=== PATIENT | female | born 1990 | race Caucasian/White ===

== ENCOUNTER 2017-08-05 18:02 | Inpatient (IN) | payer BC ==
[2017-08-05 18:47] VITALS: BMI 26.1
[2017-08-05] MEDS: Lactated Ringer's 1,000 ML IV SCH (21:07)
[2017-08-05] MEDS ORDERED: Lidocaine 1% (PF) 30 ML VIAL SC PRN (21:10)
[2017-08-05] MEDS ORDERED: HYDROcodone/Acetaminophen 5/325 mg Tablet PO PRN ×2 (21:10)
[2017-08-05] MEDS ORDERED: Carboprost 250 MCG/ML AMP IM PRN (21:10)
[2017-08-05] MEDS ORDERED: Misoprostol 200 MCG TAB PR PRN (21:10)
[2017-08-05] MEDS ORDERED: LR / Pitocin 40 units/1000 ml 1,000 ML IV PRN (21:10)
[2017-08-05] MEDS ORDERED: Promethazine HCl 25 MG/ML VIAL IM PRN (21:10)
[2017-08-05] MEDS ORDERED: Ibuprofen 800 MG TAB PO PRN (21:10)
[2017-08-05] MEDS ORDERED: Acetaminophen 500 MG TAB PO PRN (21:10)
[2017-08-05] MEDS ORDERED: Ondansetron HCl/PF 4 MG/2 ML Vial IVP PRN (21:10)
[2017-08-05] MEDS ORDERED: Diphenoxylate HCl/Atropine Tablet PO PRN ×2 (21:10)
--- NOTE | 2017-08-05 21:14 | PDOC.LDHP ---
Labor and Delivery H&P Chief complaint: contractions HPI: 26 y/o G1 at 39w6d, patient of Dr. Saeed, presents with contractions, now more intense and closer together with bloody show. Denies heavy VB, LOF, or decreased FM. ROS neg for HEENT, CV, pulm, GI, , neuro, psych, skin, musculoskeletal, or constitutional symptoms other than mentioned above Current complications: none Current medications: pre- vitamins Previous surgical history: none Allergies/Adverse Reactions: Allergies Allergy/AdvReac Type Severity Reaction Status Date / Time No Known Allergies Allergy Verified 08/05/17 07:28 Social history: none - Physical Exam Vital signs reviewed and normal: yes General: breathing through contractions Lungs: nonlabored breathing Abdomen: gravid Extremeties: no edema FHT: category 1 (130s, mod variability, + accels, no decels) [place] contractions every: 2-4 mins - Vaginal Exam cm dilated: 3 (changed from 1cm ) Effacement: 90% Station: -1 - Assessment L&D Assessment: term patient in labor - Plan Plan: admit to L&D, labor augmentation if indicated, informed consent obtained -: Dr. Saeed notified and planning to deliver.
[2017-08-05] MEDS ORDERED: Fentanyl 4 mcg/Marc 0.1% Cadd 100 ML ONE (21:26)
[2017-08-05 21:29] LABS: Hematocrit 36.1 % (36.0-47.0); Mean Platelet Volume 6.6 fL (7.4-10.4); White Blood Cell (WBC) Count 15.2 thou/uL (4.8-10.8)
[2017-08-06] MEDS: Lactated Ringer's 1,000 ML IV SCH (00:49)
[2017-08-06] MEDS ORDERED: Fentanyl 4 mcg/Marc 0.1% Cadd 100 ML ONE (04:35)
[2017-08-06] MEDS ORDERED: Fentanyl 100 MCG/2 ML VIAL ONE (06:46)
[2017-08-06] MEDS ORDERED: Promethazine HCl 25 MG/ML VIAL IM PRN (06:51)
[2017-08-06] MEDS ORDERED: Acetaminophen 325 MG TAB PO PRN (06:51)
[2017-08-06] MEDS ORDERED: diphenhydrAMINE HCl 50 MG/ML 1 ML VIAL IVP PRN (06:51)
[2017-08-06] MEDS ORDERED: Ondansetron HCl/PF 4 MG/2 ML Vial IVP PRN (06:51)
[2017-08-06] MEDS ORDERED: Eucerin (Mineral Oil/Petrolatum,White) 30 gm Jar TOP PRN (06:51)
[2017-08-06] MEDS ORDERED: Lactated Ringer's 500 ML IV PRN (06:51)
[2017-08-06] MEDS ORDERED: Naloxone HCl 0.4 mg/ml Vial IVP PRN ×2 (06:51)
[2017-08-06] MEDS ORDERED: ePHEDrine/0.9% NaCl/PF SYRINGE 50 mg/10 ml SLOW IVP PRN (06:51)
[2017-08-06] MEDS ORDERED: Fentanyl 100 MCG/2 ML VIAL EPIDURAL PRN (06:51)
[2017-08-06] MEDS ORDERED: Communication Order-Pharmacy FS SCH (07:00)
[2017-08-06] MEDS ORDERED: Fentanyl 4mcg/Marcaine 0.1% Cassette 100 ML EPIDURAL SCH (07:00)
[2017-08-06] MEDS ORDERED: LR 500 ML/Oxytocin 10 units 500 ML ONE (09:34)
[2017-08-06] MEDS ORDERED: Lidocaine 2% PF 10 ML AMP (For Epidural Use) ONE (11:11)
[2017-08-06] MEDS ORDERED: Bupivacaine 0.25% HCL 30 ML VIAL ONE (11:11)
--- NOTE | 2017-08-06 11:22 | PDOC.OPDEL ---
OB Operative/Delivery Note Delivery Dr/Surgeon: Christophe Pre-Delivery Diagnosis: active labor Procedure/Post Delivery Dx: operative vaginal delivery Weeks gestation: 40 Anesthesia: epidural - Findings A Sex: female Weight: 7 lb 6 oz - 5 min: 9 - 10 min: 9 - Additional Findings/Plan Placenta delivered: spontaneous Repaired Obstetrical Laceration: 2nd degree Estimated blood loss: 300ml Post delivery plan: routine recovery
[2017-08-06] MEDS ORDERED: Milk Of Magnesia 30 ML UDCUP PO PRN (11:24)
[2017-08-06] MEDS ORDERED: Bisacodyl 10 MG SUPP PR PRN (11:24)
[2017-08-06] MEDS ORDERED: Preparation H Ointment 28 GM TUBE PR PRN (11:24)
[2017-08-06] MEDS ORDERED: diphenhydrAMINE HCl 25 MG CAP PO PRN (11:24)
[2017-08-06] MEDS ORDERED: Benzocaine/Menthol 20-0.5% 60 ML CAN TOP PRN (11:24)
[2017-08-06] MEDS ORDERED: Adacel (T-DAP) 0.5 ML VIAL IM ONE (11:24)
[2017-08-06] MEDS ORDERED: Lanolin Ointment 7 GM TUBE TOP PRN (11:24)
[2017-08-06] MEDS ORDERED: LR / Pitocin 40 units/1000 ml 1,000 ML IV SCH (11:30)
[2017-08-06 11:41] LABS: Base Excess -8.4 mEq/L (0 (+/- 2.5)); pH (venous) 7.19 (7.25-7.35)
[2017-08-06] MEDS ORDERED: Ondansetron HCl/PF 4 MG/2 ML Vial ONE (12:51)
[2017-08-06] MEDS: Ibuprofen 800 MG TAB PO SCH ×2 (15:04→17:38)
[2017-08-06] MEDS: Ferrous Sulfate 325 MG TAB PO SCH (17:38)
[2017-08-06] MEDS: Docusate (Surfak) 240 MG CAP PO SCH (21:48)
[2017-08-07] MEDS: Ibuprofen 800 MG TAB PO SCH ×3 (03:24→21:52)
[2017-08-07] MEDS: Ferrous Sulfate 325 MG TAB PO SCH ×2 (08:49→13:25)
[2017-08-07] MEDS: Prenatal Vitamin 1 TAB PO SCH (08:51)
[2017-08-07] MEDS: Docusate (Surfak) 240 MG CAP PO SCH ×2 (08:51→21:52)
--- NOTE | 2017-08-07 09:06 | PRG ---
DATE OF SERVICE: 08/07/2017 SUBJECTIVE: The patient is doing well, has adequate pain control, is , having normal l ochia, and voiding without difficulty. PHYSICAL EXAMINATION: VITAL SIGNS: Temperature 97.9, pulse 78, respiratory rate 18, blood pressure 96/55. GENERAL: Nontoxic appearing female in no acute distress. ABDOMEN: Soft, nontender, and nondistended. No rebound, no guarding. GENITOURINARY: Fundus is firm at the umbilicus and nontender. ASSESSMENT AND PLAN: day #1, status post forceps assisted vaginal delivery by Dr. Saeed . The patient is doing well from a standpoint. Routine care.
[2017-08-08] MEDS: Ibuprofen 800 MG TAB PO SCH ×2 (06:28→13:42)
--- NOTE | 2017-08-08 07:31 | PDOC.PP ---
Post Progress Note Post Day #: 2 PO intake tolerated: yes Flatus: yes Ambulation: yes Vital Signs (12 hours) Temp Pulse Resp BP 08/07/17 20:14 98.1 F 84 18 114/69 Weight Weight 157 lb - Physical Examination General: NAD Cardiovascular: no m/r/g, RRR Respiratory: clear to ausculation bilateral Abdominal: + bowel sounds, lochia, no distention, appropriately TTP Result Diagrams: 08/05/17 21:19 Additional Labs: Post Labs Blood Type A POSITIVE 08/05/17 21:19 Hep Bs Antigen Non-Reactive S/CO (NonReactive) 08/05/17 21:19 - Assessment/Plan post day2 doing well.D/c today F/u 6 weeks
[2017-08-08 07:32] VITALS: BP 109/62; TEMP 98.3
[2017-08-08] MEDS: Prenatal Vitamin 1 TAB PO SCH (09:23)
[2017-08-08] MEDS: Docusate (Surfak) 240 MG CAP PO SCH (09:23)
[2017-08-08] MEDS: Ferrous Sulfate 325 MG TAB PO SCH (09:24)
[2017-08-08] MEDS ORDERED: traMADol HCl 50 MG TAB PO PRN (11:24)
[2017-08-08] MEDS ORDERED: Zolpidem Tartrate 5 MG TAB PO PRN (11:28)
== END 2017-08-08 14:05 | disposition home or self-care (01) | DRG 775 ==
LOC: L&D/OP 18:02 → L&D 21:19 → 3SW 08-06 14:07
PROVIDERS: ADMIT Obstetrics & Gynecology; ATTEND Obstetrics & Gynecology
PROC: 10D07Z3 Extraction of Products of Conception, Low Forceps, Via Natural or Artificial Opening (ICD-10-PCS; principal; 2017-08-06)
PROC: 0KQM0ZZ Repair Perineum Muscle, Open Approach (ICD-10-PCS; 2017-08-06)
DX: O76 Abnormality in fetal heart rate and rhythm complicating labor and delivery (principal); O70.1 Second degree perineal laceration during delivery; Z3A.39 39 weeks gestation of pregnancy; Z37.0 Single live birth
CPT/HCPCS: 36415; 76815; 82805; 85027; 86780; 87340; 90715; J2001; J2405; J3010; J7120; S0020